=== PATIENT | male | born 1980 | race Caucasian/White ===

== ENCOUNTER 2017-06-11 02:58 | Emergency (ER) | payer OTHER ==
[2017-06-11 05:49] VITALS: BP 141/80
== END 2017-06-11 05:49 | disposition home or self-care (01) ==
LOC: ED 02:58
DX: F10.239 Alcohol dependence with withdrawal, unspecified (principal); F41.9 Anxiety disorder, unspecified; I10 Essential (primary) hypertension; E78.00 Pure hypercholesterolemia, unspecified
CPT/HCPCS: 82962; J2060

== ENCOUNTER 2017-12-17 04:11 | Inpatient (IN) | payer OTHER ==
[~2017-12-17] VITALS: Ht 180.3 cm; Wt 116.1 kg
[2017-12-17 04:13] VITALS: Ht 180.3 cm; Wt 116.1 kg
[2017-12-17 04:53] LABS: PLATELET COUNT 187 x10^3mcL (130-400)
[2017-12-17 04:54] LABS: RED CELL DISTRIBUTION WIDTH 16.7 % (11.5-14.5)
[2017-12-17 04:57] LABS: CARBON DIOXIDE 28.2 mmol/L (21-32); CHLORIDE SERUM 97 mmol/L (98-107); CREATININE SERUM 0.6 mg/dL (0.7-1.3); GFR1 > 60 mL/min; GLUCOSE SERUM 98 mg/dL (74-106); POTASSIUM SERUM 3.4 mmol/L (3.5-5.1); SODIUM SERUM 133 mmol/L (136-145)
[2017-12-17 05:08] LABS: ALKALINE PHOSPHATASE 92 U/L (46-116); ALT/SGPT 50 U/L (16-63); AST/SGOT 86 U/L (15-37); BILIRUBIN TOTAL 2.18 mg/dL (0.20-1.00); TOTAL PROTEIN, SERUM 7.6 g/dL (6.4-8.2)
[2017-12-17 05:09] LABS: ALBUMIN 3.3 g/dL (3.4-5.0)
[2017-12-17 05:10] LABS: MAGNESIUM 0.6 mg/dL (1.8-2.4)
[2017-12-17] MEDS ORDERED: METFORMIN HCL500 MG PO (05:20)
[2017-12-17] MEDS ORDERED: ZESTRIL20 MG PO (05:20)
[2017-12-17 06:40] VITALS: BP 157/95
[2017-12-17 07:29] LABS: microscopic required? YES; urine erythrocyte TRACE (NEGATIVE)
[2017-12-17 07:45] LABS: AMPHETAMINE QUAL UR NONE DETECTED (NEG <=1000)
[2017-12-17 08:25] LABS: TOTAL IRON BINDING CAPACITY 286 ug/dL (250-450)
[2017-12-17 08:32] LABS: RED BLOOD CELLS 3.34 M/mm3 (4.52-5.90)
[2017-12-17 08:34] LABS: IRON 281 ug/dL (65-170)
[2017-12-17 08:48] LABS: T3 TOTAL 1.72 ng/mL
[2017-12-17 08:51] LABS: PHOSPHOROUS 3.5 mg/dL (2.5-4.9)
[2017-12-17 08:57] LABS: FREE T4 1.07 ng/dL (0.76-1.46); FREE THYROXINE INDEX 2.9 ug/dL (1.4-4.5); T4(THYROXINE) 8.8 ug/dL (4.7-13.3)
[2017-12-17 09:33] LABS: CHOLESTEROL/HDL RATIO 2.9
[2017-12-17 09:35] LABS: MAGNESIUM 0.7 mg/dL (1.8-2.4)
[2017-12-17 14:18] VITALS: BP 129/84
[2017-12-17 17:26] VITALS: BP 112/70
[2017-12-17 21:52] VITALS: BP 123/78
[2017-12-18 06:31] LABS: BASOPHIL % 0.8 % (0-2); PLATELET COUNT 171 x10^3mcL (130-400)
[2017-12-18 06:37] VITALS: BP 132/84
[2017-12-18 06:43] LABS: CALCIUM 7.2 mg/dL (8.5-10.1); CARBON DIOXIDE 27.6 mmol/L (21-32); CHLORIDE SERUM 101 mmol/L (98-107); CREATININE SERUM 0.6 mg/dL (0.7-1.3); GFR1 > 60 mL/min; GLUCOSE SERUM 86 mg/dL (74-106); MAGNESIUM 1.2 mg/dL (1.8-2.4); PHOSPHOROUS 2.9 mg/dL (2.5-4.9); POTASSIUM SERUM 3.8 mmol/L (3.5-5.1); SODIUM SERUM 137 mmol/L (136-145)
[2017-12-18 06:54] LABS: RED CELL DISTRIBUTION WIDTH 16.2 % (11.5-14.5)
[2017-12-18 09:44] VITALS: BP 118/81
[2017-12-18 13:10] VITALS: BP 127/84
[2017-12-18 16:17] VITALS: BP 122/85
[2017-12-18 20:56] VITALS: BP 101/56
[2017-12-19 05:22] VITALS: BP 128/79
[2017-12-19 07:22] LABS: CALCIUM 7.7 mg/dL (8.5-10.1); CARBON DIOXIDE 23.1 mmol/L (21-32); CHLORIDE SERUM 100 mmol/L (98-107); CREATININE SERUM 0.5 mg/dL (0.7-1.3); GFR1 > 60 mL/min; GLUCOSE SERUM 81 mg/dL (74-106); MAGNESIUM 1.2 mg/dL (1.8-2.4); PHOSPHOROUS 3.1 mg/dL (2.5-4.9); POTASSIUM SERUM 3.5 mmol/L (3.5-5.1); SODIUM SERUM 134 mmol/L (136-145)
[2017-12-19 07:26] LABS: BASOPHIL % 1.1 % (0-2); PLATELET COUNT 156 x10^3mcL (130-400)
[2017-12-19 07:27] LABS: RED CELL DISTRIBUTION WIDTH 16.1 % (11.5-14.5)
[2017-12-19] MEDS ORDERED: LIB25 PO (08:32)
[2017-12-19 09:38] VITALS: BP 129/63
[2017-12-19] MEDS ORDERED: SERTRALINE50 M1 PO (11:01)
[2017-12-19 12:58] VITALS: BP 136/80
== END 2017-12-19 13:48 | disposition home or self-care (01) | DRG 775 ==
LOC: ED 04:11 → DU 05:15
PROVIDERS: Emergency Medicine; Family Medicine; Family Medicine Sports Medicine
DX: F10.239 Alcohol dependence with withdrawal, unspecified (principal); N17.0 Acute kidney failure with tubular necrosis; G92 Toxic encephalopathy; F33.2 Major depressive disorder, recurrent severe without psychotic features; F41.1 Generalized anxiety disorder; I10 Essential (primary) hypertension; E78.00 Pure hypercholesterolemia, unspecified; Y90.9 Presence of alcohol in blood, level not specified; F17.210 Nicotine dependence, cigarettes, uncomplicated; E11.65 Type 2 diabetes mellitus with hyperglycemia; E44.1 Mild protein-calorie malnutrition; E83.42 Hypomagnesemia; E66.9 Obesity, unspecified; E78.5 Hyperlipidemia, unspecified; D64.9 Anemia, unspecified; K72.90 Hepatic failure, unspecified without coma; Z79.84 Long term (current) use of oral hypoglycemic drugs; Z79.899 Other long term (current) drug therapy; Z68.32 Body mass index [BMI] 32.0-32.9, adult
CPT/HCPCS: 82962; 83880; 84439; 97535-GP; C9113; G0480; J2060; J3411; J3475; J3490; J7030; Q0092

== ENCOUNTER 2018-05-17 21:57 | Inpatient (IN) | payer OTHER ==
[~2018-05-17] VITALS: Ht 180.3 cm; Wt 102.5 kg
[~2018-05-17 21:57] MED LIST: LIB25 PO; METFORMIN HCL500 MG PO; SERTRALINE50 M1 PO; ZESTRIL20 MG PO
[2018-05-17 22:42] VITALS: Ht 180.3 cm; Wt 102.5 kg
[2018-05-17 23:06] LABS: BASOPHIL % 0.4 % (0-2); PLATELET COUNT 222 x10^3mcL (130-400)
[2018-05-17 23:08] LABS: RED CELL DISTRIBUTION WIDTH 16.5 % (11.5-14.5)
[2018-05-17 23:10] LABS: CALCIUM 8.1 mg/dL (8.5-10.1); CHLORIDE SERUM 104 mmol/L (98-107); CREATININE SERUM 1.4 mg/dL (0.7-1.3); GFR1 60 mL/min; GLUCOSE SERUM 141 mg/dL (74-106); POTASSIUM SERUM 3.3 mmol/L (3.5-5.1); SODIUM SERUM 145 mmol/L (136-145)
[2018-05-17 23:18] LABS: ALBUMIN 3.9 g/dL (3.4-5.0); ALKALINE PHOSPHATASE 108 U/L (46-116); ALT/SGPT 62 U/L (16-63); AST/SGOT 52 U/L (15-37); BILIRUBIN TOTAL 1.64 mg/dL (0.20-1.00)
[2018-05-18 01:17] LABS: UA SPECIFIC GRAVITY 1.025 (1.005-1.035); microscopic required? YES; urine erythrocyte TRACE (NEGATIVE)
[2018-05-18 01:36] LABS: AMPHETAMINE QUAL UR POSITIVE (See below)
[2018-05-18 01:54] LABS: MAGNESIUM 1.1 mg/dL (1.8-2.4); PHOSPHOROUS 3.3 mg/dL (2.5-4.9)
[2018-05-18 02:00] LABS: CHOLESTEROL/HDL RATIO 2.5
[2018-05-18 02:04] LABS: FREE T4 1.02 ng/dL (0.76-1.46); FREE THYROXINE INDEX 3.4 ug/dL (1.4-4.5); T4(THYROXINE) 10.2 ug/dL (4.7-13.3)
[2018-05-18 02:19] LABS: T3 TOTAL 1.09 ng/mL
[2018-05-18 02:38] VITALS: BP 142/92
[2018-05-18 06:09] VITALS: BP 120/80
[2018-05-18 08:57] VITALS: BP 174/124
[2018-05-18 12:22] VITALS: BP 151/107; BP 152/103
[2018-05-18 13:32] VITALS: BP 157/109
[2018-05-19] MEDS ORDERED: LIB10 (03:10)
== END 2018-05-18 13:57 | disposition home or self-care (01) | DRG 812 ==
LOC: ED 21:57 → DU 05-18 01:01
PROVIDERS: Emergency Medicine; Family Medicine
DX: T43.621A Poisoning by amphetamines, accidental (unintentional), initial encounter (principal); N17.0 Acute kidney failure with tubular necrosis; G92 Toxic encephalopathy; E83.42 Hypomagnesemia; E83.51 Hypocalcemia; E87.6 Hypokalemia; E86.0 Dehydration; R80.9 Proteinuria, unspecified; R74.0 Nonspecific elevation of levels of transaminase and lactic acid dehydrogenase [LDH]; E78.5 Hyperlipidemia, unspecified; I10 Essential (primary) hypertension; F17.210 Nicotine dependence, cigarettes, uncomplicated; E11.9 Type 2 diabetes mellitus without complications; F10.239 Alcohol dependence with withdrawal, unspecified; Y90.9 Presence of alcohol in blood, level not specified; F19.10 Other psychoactive substance abuse, uncomplicated; Z68.32 Body mass index [BMI] 32.0-32.9, adult; Z79.84 Long term (current) use of oral hypoglycemic drugs; Y92.89 Other specified places as the place of occurrence of the external cause
CPT/HCPCS: 84439; G0480; J2060; J3475; J7030; Q0092

== ENCOUNTER 2018-05-19 00:11 | Inpatient (IN) | payer OTHER ==
[~2018-05-19] VITALS: Ht 180.3 cm; Wt 103.9 kg
[2018-05-19 00:20] VITALS: Ht 180.3 cm; Wt 103.9 kg
[2018-05-19 01:00] LABS: BASOPHIL % 0.5 % (0-2); PLATELET COUNT 151 x10^3mcL (130-400)
[2018-05-19 01:23] LABS: CALCIUM 8.4 mg/dL (8.5-10.1); CARBON DIOXIDE 23.1 mmol/L (21-32); CHLORIDE SERUM 106 mmol/L (98-107); CREATININE SERUM 0.9 mg/dL (0.7-1.3); GFR1 > 60 mL/min; GLUCOSE SERUM 140 mg/dL (74-106); POTASSIUM SERUM 3.2 mmol/L (3.5-5.1); SODIUM SERUM 143 mmol/L (136-145)
[2018-05-19 01:39] LABS: ALBUMIN 3.6 g/dL (3.4-5.0); ALKALINE PHOSPHATASE 105 U/L (46-116); ALT/SGPT 51 U/L (16-63); AST/SGOT 45 U/L (15-37); BILIRUBIN TOTAL 1.37 mg/dL (0.20-1.00); FREE T4 1.22 ng/dL (0.76-1.46); TOTAL PROTEIN, SERUM 7.7 g/dL (6.4-8.2)
[2018-05-19 02:43] LABS: AMPHETAMINE QUAL UR POSITIVE (See below)
[2018-05-19 03:05] LABS: UA SPECIFIC GRAVITY >=1.030 (1.005-1.035); microscopic required? YES; urine erythrocyte NEGATIVE (NEGATIVE)
[2018-05-19] MEDS ORDERED: LIB10 (03:10)
[2018-05-19 03:25] LABS: MAGNESIUM 1.3 mg/dL (1.8-2.4); PHOSPHOROUS 4.3 mg/dL (2.5-4.9)
[2018-05-19 04:02] VITALS: BP 114/75
[2018-05-19 08:44] VITALS: BP 104/72
[2018-05-19 12:37] VITALS: BP 124/84
[2018-05-19 16:45] VITALS: BP 120/81
[2018-05-19 20:30] VITALS: BP 111/71
[2018-05-20 06:15] VITALS: BP 130/89
[2018-05-20 07:19] LABS: BASOPHIL % 0.6 % (0-2); PLATELET COUNT 177 x10^3mcL (130-400)
[2018-05-20 07:20] LABS: RED CELL DISTRIBUTION WIDTH 16.1 % (11.5-14.5)
[2018-05-20 07:35] LABS: CALCIUM 8.3 mg/dL (8.5-10.1); CARBON DIOXIDE 24.4 mmol/L (21-32); CHLORIDE SERUM 105 mmol/L (98-107); CREATININE SERUM 0.6 mg/dL (0.7-1.3); GFR1 > 60 mL/min; GLUCOSE SERUM 89 mg/dL (74-106); MAGNESIUM 1.2 mg/dL (1.8-2.4); PHOSPHOROUS 4.2 mg/dL (2.5-4.9); POTASSIUM SERUM 3.5 mmol/L (3.5-5.1); SODIUM SERUM 139 mmol/L (136-145)
[2018-05-20 08:41] VITALS: BP 133/86
[2018-05-20 16:14] VITALS: BP 133/86
== END 2018-05-20 16:50 | disposition home or self-care (01) | DRG 812 ==
LOC: ED 00:11 → DU 02:35
PROVIDERS: Emergency Medicine; Family Medicine
DX: T43.621A Poisoning by amphetamines, accidental (unintentional), initial encounter (principal); N17.0 Acute kidney failure with tubular necrosis; G92 Toxic encephalopathy; R74.0 Nonspecific elevation of levels of transaminase and lactic acid dehydrogenase [LDH]; E87.6 Hypokalemia; E83.42 Hypomagnesemia; E66.9 Obesity, unspecified; Z68.31 Body mass index [BMI] 31.0-31.9, adult; E83.51 Hypocalcemia; F17.210 Nicotine dependence, cigarettes, uncomplicated; E11.9 Type 2 diabetes mellitus without complications; I10 Essential (primary) hypertension; E78.5 Hyperlipidemia, unspecified; F29 Unspecified psychosis not due to a substance or known physiological condition; Z82.3 Family history of stroke; Z82.49 Family history of ischemic heart disease and other diseases of the circulatory system; Z83.3 Family history of diabetes mellitus; Z80.9 Family history of malignant neoplasm, unspecified; Y92.89 Other specified places as the place of occurrence of the external cause
CPT/HCPCS: 84439; G0480; J1630; J2060; J7030